=== PATIENT | female | born 1990 | race African-American/Black ===

== ENCOUNTER 2017-01-11 16:42 | Emergency (ER) | payer OTHER | END 2017-01-11 17:32 | disposition home or self-care (01) | LOC: CFTX 16:42 | DX: S76.912A Strain of unspecified muscles, fascia and tendons at thigh level, left thigh, initial encounter (principal); S76.911A Strain of unspecified muscles, fascia and tendons at thigh level, right thigh, initial encounter; Z88.0 Allergy status to penicillin; X58.XXXA Exposure to other specified factors, initial encounter; Y92.89 Other specified places as the place of occurrence of the external cause | CPT/HCPCS: 96372; 99283; J1885 ==